=== PATIENT | female | born 1970 | race Caucasian/White ===

== ENCOUNTER 2025-03-11 21:35 | Emergency (ER) | payer OTHER ==
[2025-03-11 22:27] LABS: BASOPHILS ABSOLUTE AUTO 0.04 K/uL (0.02-0.10); BASOPHILS PERCENT AUTO 0.7 % (0.0-0.5); EOSINOPHILS ABSOLUTE AUTO 0.08 K/uL (0.04-0.40); EOSINOPHILS PERCENT AUTO 1.4 % (1.0-5.0); LYMPHOCYTES ABSOLUTE AUTO 1.90 K/uL (1.50-4.00); LYMPHOCYTES PERCENT AUTO 33.7 % (20.0-40.0); MEAN PLATELET VOLUME 8.8 fL (6.0-10.0); MONOCYTES ABSOLUTE AUTO 0.37 K/uL (0.20-0.80); MONOCYTES PERCENT AUTO 6.6 % (3.0-10.0); NEUTROPHILS ABSOLUTE AUTO 3.24 K/uL (2.00-7.50); NEUTROPHILS PERCENT AUTO 57.6 % (45.0-70.0); PLATELET COUNT,PLT 349 K/uL (150-500); RED BLOOD CELL COUNT 4.45 M/uL (3.80-5.80); RED CELL DISTRIBUTION WIDTH 13.6 % (11.0-16.0); WHITE BLOOD CELL COUNT,WBC 5.6 K/uL (4.0-11.0)
[2025-03-11] MEDS ORDERED: Sodium Chloride 0.9% 10 ML Syringe FLUSH PRN ×2 (22:30→23:06)
[2025-03-11 22:45] LABS: A/G RATIO 1.0 (0.8-2.0); ALANINE AMINOTRANSFERASE,ALT 62.0 U/L (12-78); ASPARTATE AMNIOTRANSFERASE,AST 37.0 U/L (15-37); BILIRUBIN TOTAL 0.6 mg/dL (0.0-1.0); BLOOD UREA NITROGEN,BUN 12.0 mg/dL (8-26); CARBON DIOXIDE,CO2 28.9 mmol/L (21.0-32.0); CHLORIDE,CL 103.0 mmol/L (98-107); CREATININE 0.91 mg/dL (0.55-1.02); EST CRCL DRUG DOSING (CG) 67.13 mL/min; ESTIMATED GFR 74.0 mL/min (>60); GLUCOSE RANDOM 121.0 mg/dL (74-100); POTASSIUM,K 3.6 mmol/L (3.5-5.1); PROTEIN TOTAL,TP 7.9 g/dL (6.4-8.2); SODIUM,NA 144.0 mmol/L (136-145)
[2025-03-11] MEDS: Sodium Chloride 0.9% 50 ML SDV FLUSH ONE (22:47)
[2025-03-11] MEDS: Iopamidol 612 MG/ML 100 ML Bottle IV SCH (22:47)
== END 2025-03-11 23:47 | disposition home or self-care (01) ==
LOC: LB.ED 21:35
DX: R60.0 Localized edema (principal); K21.9 Gastro-esophageal reflux disease without esophagitis; Z79.899 Other long term (current) drug therapy; Z90.49 Acquired absence of other specified parts of digestive tract
CPT/HCPCS: 36415; 71275; 80053; 85025; 85379; 99284; Q9967